=== PATIENT | male | born 1990 | race Caucasian/White ===

== ENCOUNTER → 2021-06-06 | Emergency (ER) | payer SELFPAY | END | disposition home or self-care (01) | LOC: ER 20:51 | DX: Z20.822 Contact with and (suspected) exposure to COVID-19 (principal) | CPT/HCPCS: U0002 ==

== ENCOUNTER 2021-09-24 20:11 | Emergency (ER) | payer BC ==
[~2021-09-24] VITALS: Ht 177.8 cm; Wt 88.5 kg
[2021-09-24] MEDS ORDERED: SOTROVIMAB 500 MG in SODIUM CHLORIDE 0.9% 100 ML IV ONE (20:15)
[2021-09-24 21:54] VITALS: BP 124/72
== END 2021-09-24 21:54 | disposition home or self-care (01) ==
LOC: ER 20:15
DX: U07.1 COVID-19 (principal)
CPT/HCPCS: 99283

== ENCOUNTER → 2021-10-20 | Outpatient (CLI) | payer BC | LOC: RAD 10:44 | DX: S93.401A Sprain of unspecified ligament of right ankle, initial encounter (principal) ==